=== PATIENT | female | born 1945 | race Caucasian/White ===

== ENCOUNTER 2018-04-02 08:25 | Day surgery (SDC) | payer OTHER ==
[2018-04-02] MEDS ORDERED: PROPOFOL 200 MG/20 ML VIAL IV ONE (08:29)
[2018-04-02] MEDS ORDERED: GLYCOPYRROLATE 0.2 MG/ML SYR ONE ×2 (08:30)
[2018-04-02] MEDS ORDERED: LIDOCAINE 2% MPF 5 ML VIAL ONE (08:30)
[2018-04-02] MEDS ORDERED: FENTANYL CITR 250 MCG/5 ML ONE (08:31)
[2018-04-02] MEDS ORDERED: ROCURONIUM 50 MG/5 ML VIAL IV ONE ×3 (08:32→12:41)
[2018-04-02] MEDS ORDERED: NEOSTIGMINE 1 MG/ML -5 ML SYRINGE ONE (08:32)
[2018-04-02] MEDS ORDERED: MIDAZOLAM HCL 2 MG/2 ML INJ ONE (08:33)
[2018-04-02] MEDS ORDERED: NS 0.9% VIAL 10 ML ONE (08:43)
[2018-04-02] MEDS ORDERED: BACITRACIN 50000 UNIT VIAL ONE (08:44)
[2018-04-02] MEDS ORDERED: Ringers Lactate 1,000 ML IV ONE ×3 (08:44→12:33)
[2018-04-02] MEDS ORDERED: GENTAMICIN SULF 80 MG/2ML INJ ONE (08:44)
[2018-04-02] MEDS ORDERED: CEFAZOLIN 1GM (PREMIX IV) 1 GM/50 ML BAG ONE ×2 (08:44→08:50)
[2018-04-02] MEDS ORDERED: SCOPOLAMINE HYDROBROMIDE PATCH TD ONE (08:50)
--- NOTE | 2018-04-02 08:52 | RAD REPORT ---
EXAM DESCRIPTION: RAD - Chest Pa And Lat (2 Views) - 04/02/2018 8:22 am CLINICAL HISTORY: preop Chest pain. COMPARISON: No comparisons FINDINGS: The lungs appear clear. Blunting of both posterior costophrenic angles may represent pleur al thickening or small pleural effusions. The heart is normal in size. No displaced fractures.
[2018-04-02 09:11] LABS: Urine Appearance CLEAR; Urine Bilirubin NEGATIVE (NEG); Urine Blood NEGATIVE (NEG); Urine Color YELLOW; Urine Glucose NEGATIVE (NEG); Urine Protein NEGATIVE (NEG); Urine Urobilinogen 0.2 mg/dL (0.2-1.0); Urine pH 5.5 (5.0-7.0)
[2018-04-02 09:11] LABS: Absolute Lymphocytes (CBC) 2.1 K/uL (0.7-4.9); Absolute Monocytes 0.5 K/uL (0.1-1.3); Absolute Neutrophil 5.5 K/uL (1.8-8.0); Basophils % 0.9 % (0-1.3); Eosinophils % 1.3 % (0-4.4); Hematocrit 41.9 % (36.0-45.0); Lymphocytes % 25.5 % (15.3-44.8); MPV 9.5 fL (7.6-11.3); Monocytes % 5.9 % (3.3-12.3); RBC Red Blood Cell Count 4.45 M/uL (3.86-4.86)
[2018-04-02 09:27] LABS: Urine Microscopic Reflex ORDER UMIC
[2018-04-02] MEDS ORDERED: DEXAMETHASONE 10 MG/ML VIAL ONE (09:58)
[2018-04-02] MEDS ORDERED: EPHEDRINE SULF 50 MG/ML VIAL ONE (09:59)
[2018-04-02 10:22] LABS: Urine Bacteria <20 /HPF (<20); Urine Culture Reflex Order REFLEXED; Urine RBC <5 /HPF (NONE SEEN)
[2018-04-02] MEDS ORDERED: NA CHLORIDE 0.9% 100 ML IV ONE (12:39)
[2018-04-02] MEDS: CEFAZOLIN 1GM (PREMIX IV) 1 GM/50 ML BAG ONE ×2 (12:40→13:00)
[2018-04-02] MEDS ORDERED: Mastisol Adhesive Liq ONE (13:21)
--- NOTE | 2018-04-02 13:25 | EKG ---
Test Date: 2018-04-02 Test Time: 08:15:29 Branch Billing Payroll Clerk: RADHA MEASUREMENT RESULTS: Intervals: Rate: 70 GA: 124 QRSD: 80 QT: 438 QTc: 473 [place]: P: -12 GA: 124 QRS: -10 T: -9 INTERPRETIVE STATEMENTS: Normal sinus rhythm Normal ECG No previous ECG available for comparison Electronically Signed On 04-02-18 13:24:05 INTERNATIONAL REPRESENTATIVE by Martin Osman
[2018-04-02] MEDS ORDERED: FENTANYL CITR 100 MCG/2 ML ONE (13:53)
[2018-04-02] MEDS ORDERED: ONDANSETRON 4 MG/2 ML VIAL ONE (14:25)
[2018-04-02] MEDS: HYDROMORPHONE HCL 1 MG/ML INJ ONE ×3 (14:41→14:56)
--- NOTE | 2018-04-03 00:30 | OP ---
Surgeon: Aram Verdin MD Window Glass Installer: Marlon. Preoperative Diagnoses: 1.Capsular contracture, status post breast augmentation and lift. 2.Breast descent. Postoperative Diagnoses: 1.Capsular contracture, status post breast augmentation and lift. 2.Breast descent. Procedure: Explantation, capsulectomy lift. Anesthesia: General. Procedure In Detail: After satisfactory induction of general anesthesia, the chest was prepped with DuraPrep, and dry sterile drapes were applied in the usual manner. A 42-mm template was used to outl ine the right and left areolae. Then, the skin incision was made with scalpel. The intervening skin was de-epithelialized with EpiCut dermabrader. The flap was elevated cephalad toward the clavicle, sternum, and anterior axillary line. This was done simultaneously on both sides, and then the incisi on was made at the 12 o'clock position, and the implant was removed with the capsule. The implants w ere 300 cc textured silicone gel. They were intact. The capsule on the left breast . Shakila ctrocautery was used for hemostasis. The wounds were irrigated with antibiotic solution. Then, the inferior incision was made. The de-epithelialized flaps were elevated into a cone and sewn with 2-0 PDS. Straps were elevated at 12 o'clock, 1:30, and 3 o'clock positions . The straps were then woven in and out of the pectoralis major muscle, back to the base of the cone, back to themselve s, and eventually tied with 2-0 PDS except for the 3 o'clock strap which was sewn over the sternum at the 3 o'clock position with 2-0 Ethibond. The left side was done in the mirror-image manner. The w ound was carefully stapled shut. Excess skin was marked out , and then it was removed, irr igated with antibiotic solution. Electrocautery was used for hemostasis. A 10 PAULA was brought out of the axilla and sewn in place with 2-0 silk, and wound was closed in layers of 3-0 Vicryl subcu, 3-0 PDS running subcuticular, tied in the vertical meridian of the breast. Both sides were done simultan eously, and then the patient was sat up. Site for new nipple-areolar complex was marked out. Tissue was incised; and then using a 42-mm template, the nipples were then delivered, sewn with interrupted 4-0 PDS followed by 4-0 PDS running subcuticular. Dressings consisted of tincture of benzoin, Steri -Strips, 5 x 5s, fluffs, and Rodrigo wrap. The patient tolerated the procedure well and returned to [facility] very room. NIMESH Voice ID: [id number] Report ID: [id number]
== END 2018-04-02 17:09 | disposition home or self-care (01) ==
LOC: OR 08:25
PROVIDERS: ATTEND Specialist
PROC: 0HPU0JZ Removal of Synthetic Substitute from Left Breast, Open Approach (ICD-10-PCS; 2018-04-02)
PROC: 0HPT0JZ Removal of Synthetic Substitute from Right Breast, Open Approach (ICD-10-PCS; 2018-04-02)
PROC: 0H0V0ZZ Alteration of Bilateral Breast, Open Approach (ICD-10-PCS; principal; 2018-04-02 09:00)
DX: T85.44XA Capsular contracture of breast implant, initial encounter (principal); N64.81 Ptosis of breast; Z88.1 Allergy status to other antibiotic agents
CPT/HCPCS: 36415; 71046; 81003; 81015; 85025; 87086; 87088; 88304; 88305; 93005; J0690; J1100; J1170; J1580; J2250; J2405; J2704; J2710; J3010